=== PATIENT | female | born 1980 | race Caucasian/White ===

== ENCOUNTER 2018-05-10 19:28 | Emergency (ER) | payer BC ==
[2018-05-10] MEDS ORDERED: Glucagon* 1 MG VIAL IV ONE (19:50)
[2018-05-10] MEDS ORDERED: NS 0.9% 1000 ML** 1,000 ML IV ONE (19:52)
[2018-05-10] MEDS ORDERED: Pantoprazole TAB * 40 MG TAB PO ONE (23:09)
--- NOTE | 2018-05-10 23:10 | ED ---
Throat Pain/Nasal Congestion - HPI Summary HPI Summary: Patient complains of probable food bolus in throat after eating steak. States history of getting food caught about once a month, but usually passes when she drinks something. This time she has been unable to get it to pass, and is regurgitating her saliva and anything she eats or drinks. Denies SOB, fever, cough, sore throat, CP, SOB, N/V/D, abdominal pain, change in urine, change in BM. Medical history is asthma. - History of Current Complaint Chief Complaint: EDForeignBodyEsophag Time Seen by Provider: 05/10/18 19:50 Hx Obtained From: Patient Onset/Duration: Sudden Onset Severity: Moderate Associated Signs And Symptoms: Positive: Dysphagia, FB Sensation Cough: None - Allergies/Home Medications Allergies/Adverse Reactions: Allergies Allergy/AdvReac Type Severity Reaction Status Date / Time No Known Allergies Allergy Verified 05/10/18 19:32 Home Medications: Home Medications Albuterol HFA INHALER* [Ventolin HFA Inhaler*] 1 inh INH DAILY 05/10/18 [ History Confirmed 05/10/18] Sertraline* [Zoloft*] 1 tab PO DAILY 05/10/18 [History Confirmed 05/10/18] PMH/Surg Hx/FS Hx/Imm Hx Endocrine/Hematology History: Denies: Hx Anticoagulant Therapy Cardiovascular History: Denies: Hx Pacemaker/ICD History: Denies: Hx Dialysis Sensory History: Denies: Hx Eye Prosthesis Opthamlomology History: Denies: Hx Legally Blind EENT History: Denies: Hx Deafness Neurological History: Denies: Hx Dementia Psychiatric History: Denies: Hx Autism Infectious Disease History: No Infectious Disease History: Denies: Traveled Outside the [place] in Last 30 Days - Social History Alcohol Use: Rare Substance Use Type: Reports: None Smoking Status (MU): Never Smoked Tobacco Review of Systems Constitutional: Negative Eyes: Negative Positive: Other Cardiovascular: Negative Respiratory: Negative Positive: Vomiting, Nausea Genitourinary: Negative Musculoskeletal: Negative Skin: Negative Neurological: Negative Psychological: Normal All Other Systems Reviewed And Are Negative: Yes Physical Exam Triage Information Reviewed: Yes Vital Signs On Initial Exam: Initial Vitals Temp Pulse Resp BP Pulse Ox 98.3 F 103 16 174/99 99 05/10/18 19:30 05/10/18 19:30 05/10/18 19:30 05/10/18 19:30 05/10/18 19:30 Vital Signs Reviewed: Yes Appearance: Positive: Well-Appearing Skin: Positive: Warm Head/Face: Positive: Normal Head/Face Inspection Eyes: Positive: Normal ENT: Positive: Normal ENT inspection Neck: Positive: Supple Respiratory/Lung Sounds: Positive: Clear to Auscultation Cardiovascular: Positive: Normal Abdomen Description: Positive: Nontender Musculoskeletal: Positive: Normal Neurological: Positive: Normal Psychiatric: Positive: Normal AVPU Assessment: Alert - [place] Coma Scale Best Eye Response: 4 - Spontaneous Best Motor Response: 6 - Obeys Commands Best Verbal Response: 5 - Oriented Coma Scale Total: 15 Diagnostics - Vital Signs Vital Signs Temp Pulse Resp BP Pulse Ox 05/10/18 22:00 77 98 05/10/18 21:46 77 123/74 97 05/10/18 21:17 78 123/96 99 05/10/18 21:00 89 97 05/10/18 20:47 74 142/83 99 05/10/18 20:17 90 122/99 99 05/10/18 20:00 83 95 05/10/18 19:46 94 141/93 100 05/10/18 19:45 88 99 05/10/18 19:30 98.3 F 103 16 174/99 99 - Laboratory Lab Statement: Any lab studies that have been ordered have been reviewed, and results considered in the medical decision making process. EENT Course/Dx - Course Course Of Treatment: Patient complains of probable food bolus in throat after eating steak. States history of getting food caught about once a month, but usually passes when she drinks something. This time she has been unable to get it to pass, and is regurgitating her saliva and anything she eats or drinks. Denies SOB, fever, cough, sore throat, CP, SOB, N/V/D, abdominal pain, change in urine, change in BM. Medical history is asthma. Physical exam unremarkable. Patient not tolerating her own saliva, or fluids. Glucagon 1 mg IV with no result. Dr. Bond transition lead for gastro-came in for endoscopy. Just prior to arrival of endoscopic team patient states she passed her bolus and is now tolerating by mouth fluids. Patient then suddenly return to regurgitating for unknown reason. Assessed by Dr. Bond who recommended omeprazole daily for 10 days and follow-up in clinic. Patient understands and approves of plan. - Diagnoses Provider Diagnoses: Esophageal foreign body Discharge - Sign-Out/Discharge Documenting (check all that apply): Patient Departure Patient Received Moderate/Deep Sedation with Procedure: No - Discharge Plan Condition: Stable Disposition: HOME Prescriptions: Omeprazole 20 mg PO DAILY 10 Days #10 capsule. Patient Education Materials: Esophageal Foreign Body (ED) Referrals: No Primary Care Phys,NOPCP [Primary Care Provider] - Nick Bond MD [Medical Doctor] - Additional Instructions: Take omeprazole as directed. Call tomorrow morning to follow-up with GI Dr. Bond for further evaluation. Return to the ED for any new or worsening symptoms. - Billing Disposition and Condition Condition: STABLE Disposition: Home
[2018-05-10 23:19] VITALS: BP 127/78
--- NOTE | 2018-05-11 00:41 | CONS ---
GASTROENTEROLOGY CONSULT: DATE OF CONSULT: 05/10/18 - EMERGENCY DEPT CONSULTING PHYSICIAN: Tanner Huntley MD REASON FOR CONSULT: Food bolus impaction. 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 She was unable to handle her own secretions. This has happened a number of times in the past, maybe once a month for several years. Usually, eventually the food goes down with some encouragement from water. She states she is a very fast eater. Her dentition is good. She does have some acid indigestion, taking Tums a couple of times a week. She has never taken [id number] H2 blockers or omeprazole or any prescription. PAST MEDICAL HISTORY: 1. Morbid obesity. 2. Cholecystectomy in 2007 following a brief episode of gallstone pancreatitis. 3. Anxiety - on sertraline. 4. Asthma - on a p.r.n. inhaler. She has never been on prednisone. SOCIAL HISTORY: She has worked at [employer] for about 15 years. She is . Her last visit with Dr. Parmar, her primary physician, was a year and a half ago regarding her sertraline. REVIEW OF SYSTEMS: No history of prior upper endoscopy, migraines, seizure, recent fever, TB, syncope, hepatitis, jaundice or bowel habit changes. PHYSICAL EXAM: She is morbidly obese women sitting in bed, drinking water ad- moody. HEENT exam shows some slightly blood shot eyes. Oral mucous membranes are normal. She has no adenopathy. Her lungs are clear. Heart sounds were normal. The abdomen is obese, protuberant, symmetric, normal bowel wounds. There is no tenderness. Extremities show no edema. Neurologically, her cranial nerves symmetric and movement of all 4 extremities are symmetric. 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 While of course she should eat carefully and more slowly, would also be indicated to perform a gastroscopy and dilation as needed. A short-term brief course of omeprazole 20 mg would be a good idea to protect any peptic exacerbation at tonight's event may have spread on. [id number]/[facility] #: [id number] [facility]
== END 2018-05-10 23:18 | disposition home or self-care (01) ==
LOC: ED 19:28
DX: T18.128A Food in esophagus causing other injury, initial encounter (principal); X58.XXXA Exposure to other specified factors, initial encounter
CPT/HCPCS: 96361; 96374; 99283; A9270-GY; J1610

== ENCOUNTER 2023-06-03 07:30 | Inpatient (IN) ==
[2023-06-09] MEDS ORDERED: fentaNYL 100 mcg/2 ml 50 MCG/ML VIAL IV PRN (14:09)
[2023-06-09] MEDS ORDERED: Naloxone 0.4 mg VIAL 0.4 mg/ml 1 ml VIAL IV PRN (14:09)
[2023-06-09] MEDS ORDERED: NS 0.45% 1000 ml BAG 1,000 ML IV SCH (15:00)
[2023-06-10] MEDS ORDERED: Scopolamine 1 mg/72hr PATCH ONE (06:16)
[2023-06-10] MEDS ORDERED: Heparin 5000 UNITS/ML 1 mL VIAL ONE (06:16)
[2023-06-10] MEDS ORDERED: cefTRIAXone 2 gm/50 mL D5W 2 GM/50 ML BAG IV ONE (06:17)
[2023-06-10] MEDS ORDERED: cefTRIAXone 1 gm/50 mL D5W 1 GM/50 ML BAG IV ONE (06:17)
[2023-06-10] MEDS ORDERED: Propofol 10 MG/ML 20 ML BTL ONE (06:39)
[2023-06-10] MEDS ORDERED: Lidocaine 2% PF 5 ML VIAL ONE (06:39)
[2023-06-10] MEDS ORDERED: Dexamethasone IV 4 MG/ML VIAL 1 ml VIAL ONE (06:39)
[2023-06-10] MEDS ORDERED: Ondansetron 4 mg VIAL 2 MG/ML 2 ml VIAL ONE ×2 (06:39→11:43)
[2023-06-10] MEDS ORDERED: Rocuronium 50 mg VIAL 10 mg/ml 5 ml VIAL (50 mg) ONE ×2 (06:40→06:54)
[2023-06-10] MEDS ORDERED: Midazolam 2 mg/2 ml VIAL 1 mg/ml 2 ml VIAL (2 mg) ONE (06:40)
[2023-06-10] MEDS ORDERED: fentaNYL 250 mcg/5 ml 50 MCG/ML 5 ml VIAL (250 MCG) ONE ×2 (06:40→08:32)
[2023-06-10] MEDS: Scopolamine 1 mg/72hr PATCH TRANSDERM ONE (06:43)
[2023-06-10] MEDS: Lactated Ringers 1000 ml BAG 1,000 ML IV SCH ×2 (06:44→12:28)
[2023-06-10] MEDS ORDERED: Bupivacaine 0.25% EPI 200,000 30 ML SDV ONE (07:06)
[2023-06-10] MEDS ORDERED: Methylene Blue 1% (ANTIDOTE) 10 MG/ML 10 ML SDV VIAL IVPB ONE (07:06)
[2023-06-10] MEDS ORDERED: Phenylephrine IV 10 MG/ML 1 ml VIAL ONE (07:42)
[2023-06-10] MEDS ORDERED: HYDROmorphone 0.5 MG/0.5 ML SYRINGE IV SLOW PU PRN (10:43)
[2023-06-10] MEDS ORDERED: Ondansetron 4 mg VIAL 2 MG/ML 2 ml VIAL IV PRN (10:43)
[2023-06-10] MEDS ORDERED: HYDROmorphone 1 MG/1 ML SYRINGE IV SLOW PU PRN (10:43)
[2023-06-10] MEDS ORDERED: Albuterol HFA INHALER 8 gm MDI INH PRN (10:51)
[2023-06-10 11:20] LABS: Rapid COVID-19 Molecular Undetected (Undetected)
[2023-06-10] MEDS: Ondansetron 4 mg VIAL 2 MG/ML 2 ml VIAL IV PRN (11:46)
[2023-06-10] MEDS ORDERED: Metoclopramide 5 MG/ML VIAL (10 mg) ONE (11:54)
[2023-06-10] MEDS: Metoclopramide 5 MG/ML VIAL (10 mg) IV PRN (11:56)
[2023-06-10] MEDS: Acetaminophen IV 1 GM/100ML 1,000 MG/100 ML BAG IV ONE (12:32)
[2023-06-10] MEDS: Buffered Lidocaine 1% SYRIN 1 ml INTRADERM ONE (12:32)
[2023-06-10] MEDS ORDERED: Acetaminophen IV 1 GM/100ML 1,000 MG/100 ML BAG IV SCH (13:00)
[2023-06-10] MEDS: Acetaminophen IV 1 GM/100ML 1,000 MG/100 ML BAG IV SCH (14:05)
[2023-06-10] MEDS: Heparin 5000 UNITS/ML 1 mL VIAL SUBCUT SCH (14:08)
[2023-06-10] MEDS ORDERED: Metoclopramide 5 MG/ML VIAL (10 mg) IV PRN (16:31)
[2023-06-10] MEDS: Famotidine IV 10 MG/ML 2 ml VIAL (20 mg) IV SLOW PU SCH (20:27)
[2023-06-11] MEDS ORDERED: HYDROcodone/ACET. 7.5/325 LIQ 15 ML UDC PO PRN (08:16)
[2023-06-11] MEDS: D5W 1/2 NS KCl 20 meq 1000 ml 1,000 ML IV SCH (09:51)
[2023-06-11 10:18] VITALS: BP 126/76
== END 2023-06-11 13:50 | disposition home or self-care (01) | DRG 403 ==
LOC: AA 06-10 05:59 → SSU 06-10 12:27
PROVIDERS: ADMIT Surgery; ATTEND Surgery